=== PATIENT | male | born 1965 | race Caucasian/White ===

== ENCOUNTER 2020-08-04 18:40 | Emergency (ER) | payer BC ==
[~2020-08-04] VITALS: Ht 177.8 cm; Wt 93.0 kg
[~2020-08-04 18:40] MED LIST: FIBER CHOICE1 EACH PO; HYDROCODON-ACE1 EACH PO; STOOL SOFTENER1 EAC2 PO; ULTRAM 50MG TAB50 MG PO
[2020-08-04 20:00] VITALS: BP 126/87
== END 2020-08-04 20:00 | disposition home or self-care (01) ==
LOC: M.ERS 18:40
DX: S61.011A Laceration without foreign body of right thumb without damage to nail, initial encounter (principal); Z79.899 Other long term (current) drug therapy; W25.XXXA Contact with sharp glass, initial encounter; Y93.89 Activity, other specified; Y92.89 Other specified places as the place of occurrence of the external cause; Y99.8 Other external cause status